=== PATIENT | female | born 1975 | race Caucasian/White ===

== ENCOUNTER → 2017-02-21 | Outpatient (CLI) | payer BC ==
[~2017-02-21] MED LIST: ACET-1256 PO; CPR500 PO; IBUP-1450 PO; ONDA4TAB10 SL; OXYC-57 PO
[2017-02-24 23:49] LABS: CHLAMYDIA TRACH RNA*** NOT DETECTED (NOT DETECTED); GC (NEIS GONORRHOEAE)RNA** NOT DETECTED (NOT DETECTED)
== END | disposition home or self-care (01) ==
LOC: C.LABSPEC 15:01
PROVIDERS: ATTEND Family Medicine
DX: Z11.3 Encounter for screening for infections with a predominantly sexual mode of transmission (principal)

== ENCOUNTER → 2017-02-21 | Outpatient (CLI) | payer BC | END | disposition home or self-care (01) | LOC: C.PAPS 08:29 | PROVIDERS: ATTEND Family Medicine | DX: Z12.72 Encounter for screening for malignant neoplasm of vagina (principal) ==

== ENCOUNTER 2018-05-18 14:10 | Emergency (ER) | payer BC ==
[~2018-05-18] VITALS: Ht 160 cm; Wt 61.9 kg
[~2018-05-18 14:10] MED LIST changes: -IBUP-1450 PO; -ONDA4TAB10 SL; -OXYC-57 PO
[2018-05-18 14:26] VITALS: TEMP 36.8; Ht 160 cm; Wt 61.9 kg
[2018-05-18] MEDS ORDERED: METHYLPREDNISOLONE 125 MG VIAL IV STA (15:16)
[2018-05-18] MEDS ORDERED: DiphenhydrAMINE HCL 50 MG/ML VIAL IV STA (15:16)
[2018-05-18] MEDS ORDERED: KETOROLAC TROMETHAMINE 30 MG/ML VIAL IV STA (15:16)
[2018-05-18] MEDS ORDERED: SODIUM CHLORIDE 0.9% 1000ML 1,000 ML IV STA (15:16)
[2018-05-18] MEDS ORDERED: FAMOTIDINE 20MG/5ML IV PUSH IV STA (15:16)
[2018-05-18] MEDS ORDERED: CEPHALEXIN MONOHYDRATE 250 MG CAP PO ONE (15:30)
[2018-05-18 15:53] VITALS: O2SAT 100
--- NOTE | 2018-05-18 16:42 | EMERGENCY ROOM VISIT NOTE ---
ED Visit Note First contact with patient: 15:01 CHIEF COMPLAINT: Rash HISTORY OF PRESENT ILLNESS: This 42-year-old femur patient presents to the emergency department by private vehicle complaining of a rash on her hands, arms , feet, and legs which started several days ago, but has gotten much worse over the past 2-3 days. Patient states about a week ago she believes that she got into poison avl. She started to have a mild rash on her arms and legs that began to get much worse about 3 days ago. She states yesterday that the rash became severe, blistering and oozing, and is now becoming painful especially in her left foot, which has become swollen. The patient denies fever, chills, nausea, or loss of appetite. They deny any URI symptoms. The patient has tried oatmeal baths, calamine lotion, topical ointments, Benadryl, all without improvement. The patient states the rash has started to spread today, she has noticed the rash spreading up her legs and onto her abdomen and back, which is what concerned her and caused her to come to the emergency department today. She describes the rash as burning and itchy and rates the discomfort as 7/10. No change in food, soap, detergents, or other environmental factors. No new medications. No weakness or numbness. She denies any facial swelling, difficulty breathing, throat tightness, cough, or chest pain. She denies any dizziness or syncope. REVIEW OF SYSTEMS: A 6 system review of systems was completed with positives and pertinent negatives listed in the HPI. ALLERGIES: Reviewed in chart, see below. MEDICATIONS: Reviewed in chart, see below. PMH: Reviewed in chart, see below. SOCIAL HISTORY: Lives at home with family. She denies tobacco use. PHYSICAL EXAM: Vital Signs: Reviewed Nurse's notes, vital signs stable. CONSTITUTIONAL: Pleasant and cooperative. No acute distress, but appears uncomfortable. Well-hydrated, well appearing and well nourished. HEENT: Normocephalic, atraumatic. Pupils equal, round and reactive to light, EOMI. TMs normal. Pharynx normal. No facial or intraoral swelling. Patent airway. NECK: Supple, full active range of motion without discomfort. RESPIRATORY: Clear to auscultation bilaterally with no wheezing, crackles, rhonchi or stridor. Equal expansion bilaterally. CARDIOVASCULAR: Regular rate and rhythm with no murmurs, rubs or gallops. Normal peripheral perfusion. No edema. GASTROINTESTINAL: Soft, nontender, nondistended. Bowel sounds present in all quadrants. MUSCULOSKELETAL: Full range of motion of all joints without discomfort. INTEGUMENTARY: There is a diffuse vesicular rash noted to the bilateral feet and calves as well as the bilateral hands and forearms, several large clusters of vesicles weeping serous fluid. The left foot is moderately swollen, slightly erythematous, and tender to palpation. There is no purulent drainage from any of the wounds. There are several clusters of pink papular lesions noted on the thighs, abdomen, and lower back. NEUROLOGIC: Alert and oriented x4. Normal strength and sensation in all 4 extremities. No focal neurologic deficits noted. Normal speech. Normal gait observed. EMERGENCY DEPARTMENT COURSE: I examined the patient. The patient's exam appears consistent with a severe poison val dermatitis. I am also concerned for a developing secondary infection of the left foot, though there is no overt cellulitis at this time. No purulent noted from any of the lesions. No airway compromise and no facial edema. IV site was placed, orders were placed for IV saline bolus for hydration, 50 mg IV Benadryl, 20 mg IV Pepcid, 125 mg IV Solu- Medrol, IV Toradol for pain, and PO Keflex to treat for possible cellulitis. Patient was monitored during her entire time in the emergency department, which was approximately 3 hours. Has been, she states that she is feeling much better , her pain and itching are improved. Patient was educated regarding continued skin and wound care, close follow-up with her PCP, and strict return precautions should her symptoms worsen, she verbalized understanding. Prescriptions for Keflex and prednisone taper were sent to the pharmacy, patient was educated regarding these medications. Patient was discharged home in stable condition and ambulatory. Problem List Medical Problems: (1) Anxiety Status: Chronic (2) Depression Status: Chronic Current/Historical Medications Scheduled Cephalexin Monohydrate (Keflex), 500 MG PO QID Ciprofloxacin (Ciprofloxacin HCl), 500 MG PO BID Prednisone (Prednisone), 0 PO DAILY Scheduled PRN Acetaminophen (Tylenol), 1,000 MG PO BID PRN for Pain Allergies Coded Allergies: Meat (Verified Allergy, Mild, cultural preference, 09/04/16) Penicillins (Unverified Allergy, Unknown, RASH CHILD , 09/03/16) Vital Signs Date Time Temp Pulse Resp B/P (MAP) Pulse Ox O2 Delivery O2 Flow Rate FiO2 05/18/18 18:08 80 16 103/67 100 Room Air 05/18/18 16:01 71 05/18/18 15:53 100 Room Air 05/18/18 14:26 36.8 92 16 120/86 99 Room Air Medications Administered Medications (Trade) Dose Ordered Sig/Chucky Route Start Time Stop Time Status Last Admin Dose Admin Diphenhydramine HCl (Benadryl Inj) 50 mg NOW STAT IV 05/18/18 15:16 05/18/18 15:21 DC 05/18/18 15:50 50 MG Ketorolac Tromethamine (Toradol Inj) 15 mg NOW STAT IV 05/18/18 15:16 05/18/18 15:21 DC 05/18/18 15:50 15 MG Famotidine (Pepcid 20mg Iv Push) 20 mg ONE STAT IV 05/18/18 15:16 05/18/18 15:21 DC 05/18/18 15:50 20 MG Sodium Chloride 1,000 ml @ 999 mls/hr Q1H1M STAT IV 05/18/18 15:16 05/18/18 16:16 DC 05/18/18 15:52 999 MLS/HR Methylprednisolone Sodium Succinate (Solu-Medrol IV) 125 mg NOW STAT IV 05/18/18 15:16 05/18/18 15:21 DC 05/18/18 15:49 125 MG Cephalexin Monohydrate (Keflex Cap) 500 mg NOW ONCE PO 05/18/18 15:30 05/18/18 15:31 DC 05/18/18 15:50 500 MG Departure Information Impression Primary Impression: Poison val dermatitis Additional Impression: Cellulitis of left foot Dispostion Home / Self-Care Condition GOOD Prescriptions Cephalexin Monohydrate (KEFLEX) 500 Mg Cap 500 MG PO QID for 10 Days, #39 CAP Prov: Norma Burris CRNP 05/18/18 Prednisone (Prednisone) 20 Mg Tab 0 PO DAILY, #18 TAB 3 DAILY FOR 3 DAYS, THEN 2 DAILY FOR 3 DAYS, THEN 1 DAILY FOR 3 DAYS. Prov: Norma Burris CRNP 05/18/18 Referrals Manuela Perez D.O. (PCP) Patient Instructions ED Dermatitis Poison Val, ED Infec Skin Cellulitis, My [facility] Additional Instructions You were evaluated and treated in the Emergency Department for your poison val outbreak and develop cellulitis of your left foot. You have been prescribed Keflex to be taken 4 times a day for 10 days. This medication is an antibiotic to treat for infection. Stop this medication and contact a medical provider if you were to develop any significant adverse side effects including: wheezing, shortness of breath, passing out, vomiting, or a diffuse rash. Always take antibiotics as directed and COMPLETE the ENTIRE course regardless of the improvement of your symptoms. You have been prescribed prednisone taper to be taken over the next 9 days. Take as prescribed. This is a steroid to help improve your rash. You may continue to take Benadryl 25 mg tablets 1-2 tablets every 4-6 hours as needed for itching and rash. This is available [id number]. You should take Claritin 10 mg tablet orally once daily for the next 2 weeks. This medication is [id number] and you will NOT need a prescription to purchase this at your local pharmacy. For pain control, you can use the following [id number] medicines (if >12 yo): - Extra strength (500mg/tab) Tylenol (acetaminophen) 1-2 tabs every 6-8 hours as needed. Do not exceed 6 tablets in a 24 hour period. Avoid taking more than 3 grams (3000 mg) of Tylenol per day. This includes any other sources of acetaminophen you may take on a regular basis. - Regular strength (200 mg/tab) Advil (ibuprofen) 1-2 tabs every 4-6 hours as needed. Do not exceed a dose of 2400 mg per day. Apply warm compresses to the area to help with pain and also to help improve the infection. Follow up with your PCP in 2 days for recheck, or sooner for worsening symptoms. Return to the Emergency Department if your current symptoms worsen despite treatment course outlined above, or if you develop any of the following symptoms : wheezing, tongue or face swelling, tightness in your throat, shortness of breath, severe dizziness or passing out, or for any signs of worsening infection including: increased pain, swelling, foul smelling/pus discharge, streaking, or fevers/chills/feeling ill. If any of these are noticed you should return to the Emergency Department for further assessment and treatment. Work Instructions Return To Work: 3 days Problem Qualifiers
[2018-05-18] MEDS ORDERED: CEPH500C2 PO (17:49)
[2018-05-18] MEDS ORDERED: PRED20TA PO (17:49)
[2018-05-18 18:08] VITALS: BP 103/67; PULSE 80; O2SAT 100
== END 2018-05-18 18:41 | disposition home or self-care (01) ==
LOC: C.EDB 14:11 → C.EDD 18:41
DX: L25.5 Unspecified contact dermatitis due to plants, except food (principal); L03.116 Cellulitis of left lower limb; Z88.0 Allergy status to penicillin; Z91.018 Allergy to other foods